=== PATIENT | male | born 1945 | race African-American/Black ===

== ENCOUNTER 2016-07-13 14:32 | Inpatient (IN) | payer MEDICARE, BC ==
--- NOTE | 2016-07-13 15:05 | Emergency Department Record ---
History of Present Illness - General Chief Complaint: Abdominal Pain Stated Complaint: ABD PAIN,NAUSEA AND DIZZY Time Seen by Provider: 07/13/16 15:04 Source: Patient Mode of Arrival: Ambulatory Limitations: No limitations - History of Present Illness Initial Comments: The patient is here due to a 4 - 5 day hx of vague intermittent AP, nausea, and loose watery stools. The patient did have a fever this AM. He denies any vomiting, blood in the stool, recent Abx use or any hx of Cdiff. He does feel dizzy intermittently. The patient does have an ileostomy due to having his colon removed from Ulcerative Colitis. He also has had his prostate out and his gallbladder removed. MD Complaint: Abdominal pain Onset/Timin -: Days(s) Associated Symptoms: Chills, Nausea - Related Data Home Medications Medication Instructions Recorded Confirmed Last Taken Alprazolam [Xanax] 0.5 mg PO DAILY 07/13/16 07/13/16 07/12/16 Amlodipine Besylate [Norvasc] 5 mg PO DAILY 07/13/16 07/13/16 07/12/16 Aspirin [Aspir-Low] 81 mg PO DAILY 07/13/16 07/13/16 07/12/16 Baclofen 10 mg PO TID 07/13/16 07/13/16 07/12/16 Cholecalciferol (Vitamin D3) 1,000 unit PO DAILY 07/13/16 07/13/16 07/12/16 [Vitamin D3] Codeine Sulfate 30 mg PO TID 07/13/16 07/13/16 07/12/16 Dicyclomine HCl 10 mg PO BID 07/13/16 07/13/16 07/12/16 Divalproex Sodium [Depakote ER] 400 mg PO QHS 07/13/16 07/13/16 07/11/16 Levothyroxine Sodium [Synthroid] 75 mcg PO DAILY 07/13/16 07/13/16 07/12/16 Loperamide HCl [Immodium] 2 mg PO DAILY 07/13/16 07/13/16 07/12/16 Metoprolol Tartrate [Lopressor] 25 mg PO DAILY 07/13/16 07/13/16 07/12/16 Omeprazole [Prilosec] 20 mg PO DAILY 07/13/16 07/13/16 07/12/16 Quetiapine Fumarate [Seroquel Xr] 400 mg PO QHS 07/13/16 07/13/16 07/11/16 Quetiapine Fumarate [Seroquel] 400 mg PO QHS 07/13/16 07/13/16 07/12/16 Riboflavin [Vitamin B-2] 100 mg PO DAILY 07/13/16 07/13/16 07/12/16 Sodium Fluoride [Fluoride] 0.5 mg PO DAILY 07/13/16 07/13/16 07/12/16 Allergies Allergy/AdvReac Type Severity Reaction Status Date / Time olanzapine Allergy HYPERSENSIT Verified 07/13/16 14:59 IVITY Travel Screening - Travel/Exposure Within Last 30 Days Have you traveled within the last 30 days?: No - Travel/Exposure Within Last Year Have you traveled outside the [place] in the last year?: No - Additonal Travel Details Have you been exposed to anyone with a communicable illness?: No Review of Systems Constitutional: Denies: Chills, Fever Eyes: Denies: Eye discharge ENT: Denies: Congestion Respiratory: Denies: Cough, Dyspnea Past Medical History - SOCIAL HISTORY Smoking Status: Never smoker Alcohol Use: None Drug Use: None - RESPIRATORY Hx Respiratory Disorders: No - CARDIOVASCULAR Hx Cardio Disorders: Yes Hx Hypertension: Yes Comment:: murmer - NEURO Hx Neuro Disorders: Yes Hx Headaches: Yes - GI Hx GI Disorders: Yes Hx Obstructive Bowel: Yes Comment:: colostomy r/t agent orange [place] - Hx Genitourinary Disorders: Yes Hx Bladder Problem: Yes (pt thinks removed) - ENDOCRINE Hx Endocrine Disorders: Yes Hx Diabetes: No Hx Thyroid Disease: Yes - MUSCULOSKELETAL Hx Musculoskeletal Disorders: Yes - PSYCH Hx Psych Problems: Yes Hx Anxiety: Yes Hx Depression: Yes - HEMATOLOGY/ONCOLOGY Hx Hematology/Oncology Disorders: No Hx Blood Transfusions: Yes Hx Blood Transfusion Reaction: No Family Medical History Any Significant Family History?: No Physical Exam - General General Appearance: Alert, Oriented x3, Cooperative, No acute distress - Head Head exam: Atraumatic, Normocephalic, Normal inspection - Eye Eye exam: Normal appearance, PERRL - Neck Neck exam: Normal inspection, Full ROM. negative: Tenderness - Respiratory Respiratory exam: Normal lung sounds bilaterally. negative: Respiratory distress - Cardiovascular Cardiovascular Exam: Regular rate, Normal rhythm, Normal heart sounds - GI/Abdominal GI/Abdominal exam: Soft, Normal bowel sounds, Tenderness (There is mild R sided abdominal tenderness.). negative: Diminished bowel sounds, Distended, Guarding - Extremities Extremities exam: Normal inspection, Full ROM, Normal capillary refill. negative: Tenderness Course Vital Signs 07/13/16 14:47 Temperature 97.7 F Pulse Rate 83 Respiratory 18 Rate Blood Pressure 136/96 Pulse Ox 99 - Reevaluation(s) Reevaluation #1: The patient is doing well at this time. He denies any new issues but is still having significant diarrhea. There is no nausea or vomiting. 07/13/16 17:36 Reevaluation #2: The patient is doing OK at this time. He is still having some abdominal pain but no nausea or vomiting. I did discuss the CT and lab results with the patient and the need for admission. 07/13/16 18:00 Reevaluation #3: I did discuss the case with Dr. Lewis and he agrees with admitting the patient here at [facility] and will be available for consultation. I then did discuss the case with Amanda BOWSER) who accepts the patient for admission for Dr. Gonzales. 07/13/16 18:15 Medical Decision Making - Data Complexity MDM Data: Labs Ordered and/or Reviewed, X-Ray Ordered and/or Reviewed (Abd CT: partial SBO with mildly dilated small bowel. There is a zone of transition near the surgical anastomosis site.) - Lab Data Result diagrams: 07/13/16 15:50 07/13/16 15:50 Disposition Disposition: Admit Clinical Impression: Small bowel obstruction due to adhesions Disposition: Still a Patient at [facility] Decision to Admit: Admit from ER Decision to Admit Date: 07/13/16 Decision to Admit Time: 18:17 Accepting Physician: Janet Time Discussed w/Accepting Physician: 18:17 Condition: (2) Stable Instructions: Abdominal Pain (ED) Forms: Patient Portal Access Time of Disposition: 18:17
[2016-07-13] MEDS ORDERED: 0.9 % SODIUM CHLORIDE 1,000 ML BAG IV ONE ×2 (15:11→16:28)
[2016-07-13] MEDS ORDERED: ONDANSETRON HCL IV 4 MG/2 ML VIAL IV ONE (15:11)
[2016-07-13 16:00] LABS: BASO % 0.1 % (0-6); EOS % 0.7 % (0-6); GRAN % 59.2 % (47-80); HEMATOCRIT 42.2 % (42.0-52.0); HEMOGLOBIN 14.2 gm/dl (14.0-18.0); LYMPH % 26.2 % (16-45); MEAN CELL VOLUME 88.1 fl (81-97); MEAN CORPUSCULAR HEMOGLOBIN 29.6 pg (27-33); MEAN CORPUSCULAR HGB CONC 33.6 g/dl (32-36); MEAN PLATELET VOLUME 11.4 fl (7.4-10.4); MONO % 13.8 % (0-9); PLATELET COUNT 219 K/uL (130-400); RED BLOOD COUNT 4.79 M/uL (4.40-5.70); RED CELL DISTRIBUTION WIDTH 13.4 % (11.5-14.5); WHITE BLOOD COUNT W/O DIFF 8.5 K/uL (4.2-12.2)
[2016-07-13 16:10] LABS: ALBUMIN 4.9 gm/dL (3.5-5.0); ANION GAP 16.2 (7-16); BILIRUBIN,TOTAL 0.6 mg/dL (0.2-1.3); CARBON DIOXIDE 18.8 mmol/L (22-30); CREATININE 2.4 mg/dL (0.66-1.25); TOTAL PROTEIN 9.3 gm/dL (6.3-8.2)
[2016-07-13 17:00] LABS: URINE APPEARANCE CLEAR; URINE BILIRUBIN MODERATE (NEGATIVE); URINE BLOOD NEGATIVE (NEGATIVE); URINE COLOR YELLOW; URINE GLUCOSE (UA) NEGATIVE (NEGATIVE); URINE KETONE TRACE (NEGATIVE); URINE LEUKOCYTE ESTERASE NEGATIVE (NEGATIVE); URINE NITRITE NEGATIVE (NEGATIVE); URINE UROBILINOGEN 0.2 E.U./dL (0.20 - 1.00)
[2016-07-13] MEDS ORDERED: ONDANSETRON HCL IV 4 MG/2 ML VIAL IVP ONE (17:58)
[2016-07-13] MEDS ORDERED: HYDROMORPHONE HCL 1 MG/ML CPJ IVP ONE (17:58)
[2016-07-13] MEDS ORDERED: ONDANSETRON HCL IV 4 MG/2 ML VIAL IVP PRN (19:26)
[2016-07-13] MEDS ORDERED: PANTOPRAZOLE SODIUM IV 40 MG VIAL IVP SCH (19:26)
[2016-07-13] MEDS ORDERED: QUETIAPINE FUMARATE 400 MG PO SCH (22:00)
[2016-07-13] MEDS ORDERED: DIVALPROEX SODIUM 500 MG TABLET ER PO SCH (22:00)
[2016-07-13] MEDS ORDERED: QUETIAPINE FUMARATE 25 MG TABLET PO SCH (22:00)
[2016-07-13] MEDS: HYDROMORPHONE HCL 1 MG/ML CPJ IVP PRN (22:09)
[2016-07-13] MEDS: DICYCLOMINE HCL 10 MG CAPSULE PO SCH (22:12)
[2016-07-13] MEDS: BACLOFEN 10 MG TABLET PO SCH (23:55)
[2016-07-13] MEDS: QUETIAPINE 400 MG PO SCH (23:56)
[2016-07-13] MEDS: DIVALPROEX 500 MG PO SCH (23:56)
[2016-07-14] MEDS: HYDROMORPHONE HCL 1 MG/ML CPJ IVP PRN ×2 (05:19→10:49)
[2016-07-14 06:20] LABS: BASO % 0.2 % (0-6); EOS % 0.5 % (0-6); GRAN % 65.7 % (47-80); HEMATOCRIT 37.1 % (42.0-52.0); HEMOGLOBIN 12.3 gm/dl (14.0-18.0); LYMPH % 19.5 % (16-45); MEAN CELL VOLUME 90.3 fl (81-97); MEAN CORPUSCULAR HEMOGLOBIN 29.9 pg (27-33); MEAN CORPUSCULAR HGB CONC 33.2 g/dl (32-36); MEAN PLATELET VOLUME 11.4 fl (7.4-10.4); MONO % 14.1 % (0-9); PLATELET COUNT 190 K/uL (130-400); RED BLOOD COUNT 4.11 M/uL (4.40-5.70); RED CELL DISTRIBUTION WIDTH 13.4 % (11.5-14.5); WHITE BLOOD COUNT W/O DIFF 6.1 K/uL (4.2-12.2)
[2016-07-14 06:34] LABS: ANION GAP 10.8 (7-16); CARBON DIOXIDE 18.2 mmol/L (22-30); CREATININE 2.2 mg/dL (0.66-1.25)
[2016-07-14] MEDS: METOPROLOL TART 25 MG TABLET PO SCH (10:43)
[2016-07-14] MEDS: LEVOTHYROXINE SODIUM 75 MCG TABLET PO SCH (10:43)
[2016-07-14] MEDS: AMLODIPINE BESYLATE 5MG TAB PO SCH (10:43)
[2016-07-14] MEDS: BACLOFEN 10 MG TABLET PO SCH ×3 (10:43→21:09)
[2016-07-14] MEDS: DICYCLOMINE HCL 10 MG CAPSULE PO SCH ×2 (10:44→21:08)
[2016-07-14] MEDS: ALPRAZOLAM 0.25 MG TABLET PO SCH (10:44)
[2016-07-14] MEDS: 0.9 % SODIUM CHLORIDE 1000ML 1,000 ML IV PRN ×2 (10:52→19:42)
--- NOTE | 2016-07-14 17:36 | History & Physical ---
History of Present Illness - Date of Service Date of Service for History & Physical: 07/14/16 - History of Present Illness Admitting Diagnosis: 1. Small bowel obstruction with dehydration and renal insuffiency. History of Present Illness: 65 yo male admitted SBO. History obtained from chart as patient is unable to stay awake during exam. PMHx of UC s/p colectomy w/ ileostomy placement, h/o SBO, anxiety, depression, HTN, hypothyroidism, acid reflux, former smoker, COPD , h/o etoh abuse, and Vit D defeciency. Pt presented to our ED for vague AP, nausea, and loose stool. symptoms began 4- 5 days prior to arrival. aggravated by nothing. Alleviated w/ bowel rest and pain medications. Associated symptoms include fever. upon presentation to the ED, temp 97.7, HR 83, RR 18, BP 136/96, pulse ox 99. WBC 8.5, hgb 14.2, hct 42.2, plt 219, BUN 42, cr 2.4, glucose 111, lipase & hepatic profile are negative. UA: trace ketones, moderate bili, stool negative for WBCs and Cdiff. CTA/P: colectomy, R ileostomy, small bowel obstruction w/ noted adhesion. Patient made NPO, started on IV pain control & fluids. General surgery consulted. Patient admitted for further medical management. 07/14/16: This am, patient is difficult to arouse following 1 gm of IV Dilaudid and 0.5 mg of PO Xanax. Patient arouses to name, however unable to stay awake. No family in the room and difficult to obtain history. Patient denies pain, however abdomen TTP on exam. Ileostomy bag w/ liquid stool. Per chart, no recent infections or antibiotic use. Other surgeries include prostatectomy and cholecystectomy. PCP: unknown Travel Screening - Travel/Exposure Within Last 30 Days Have you traveled within the last 30 days?: No - Travel/Exposure Within Last Year Have you traveled outside the [place] in the last year?: No - Additonal Travel Details Have you been exposed to anyone with a communicable illness?: No - Travel Symptoms Symptom Screening: Fever (Subjective), Joint & Muscle Aches, Weakness, Fatigue, Diarrhea, Stomach Pain, Lack of Appetite, Chills Review of Systems Constitutional: Denies: Chills, Fever Eyes: Denies: Eye discharge ENT: Denies: Congestion Respiratory: Denies: Cough, Dyspnea Past Medical History - SOCIAL HISTORY Smoking Status: Never smoker - RESPIRATORY Hx Respiratory Disorders: No - CARDIOVASCULAR Hx Cardio Disorders: Yes Hx Hypertension: Yes Comment:: murmur - NEURO Hx Neuro Disorders: Yes Hx Headaches: Yes - GI Hx GI Disorders: Yes Hx Nausea/Vomiting: Yes (intermittent nausea since Saturday) Hx Obstructive Bowel: Yes Comment:: colostomy r/t agent orange [place], ileostomy due to ulcertative colitis - Hx Genitourinary Disorders: Yes Hx Bladder Problem: Yes (pt thinks removed) - ENDOCRINE Hx Endocrine Disorders: Yes Hx Diabetes: No Hx Thyroid Disease: Yes - MUSCULOSKELETAL Hx Musculoskeletal Disorders: Yes Hx Back Injury: Yes (pulled muscles/ligaments in back last week) - PSYCH Hx Psych Problems: Yes Hx Anxiety: Yes Hx Depression: Yes - HEMATOLOGY/ONCOLOGY Hx Hematology/Oncology Disorders: No Hx Blood Transfusions: Yes Hx Blood Transfusion Reaction: No Family Medical History Any Significant Family History?: No Hx Diabetes: Mother Hx Heart Disease: Mother Hx Liver Disease: Father H&P Meds/Allergies - Allergies Allergies: Allergies Allergy/AdvReac Type Severity Reaction Status Date / Time olanzapine Allergy HYPERSENSIT Verified 07/13/16 14:59 IVITY - Home Medications Home Medications Medication Instructions Recorded Confirmed Last Taken Alprazolam [Xanax] 0.5 mg PO DAILY 07/13/16 07/13/16 07/12/16 Amlodipine Besylate [Norvasc] 5 mg PO DAILY 07/13/16 07/13/16 07/12/16 Aspirin [Aspir-Low] 81 mg PO DAILY 07/13/16 07/13/16 07/12/16 Baclofen 10 mg PO TID 07/13/16 07/13/16 07/12/16 Cholecalciferol (Vitamin D3) 1,000 unit PO DAILY 07/13/16 07/13/16 07/12/16 [Vitamin D3] Codeine Sulfate 30 mg PO TID 07/13/16 07/13/16 07/12/16 Dicyclomine HCl 10 mg PO BID 07/13/16 07/13/16 07/12/16 Divalproex Sodium [Depakote ER] 1,000 mg PO QHS 07/13/16 07/13/16 07/11/16 Latanoprost 0.005% Opth Molly 1 drop OP QHS 07/13/16 07/13/16 07/12/16 22:00 [Xalatan] 1 drop each eye Levothyroxine Sodium [Synthroid] 75 mcg PO DAILY 07/13/16 07/13/16 07/12/16 Loperamide HCl [Immodium] 2 mg PO DAILY 07/13/16 07/13/16 07/12/16 Metoprolol Tartrate [Lopressor] 25 mg PO DAILY 07/13/16 07/13/16 07/12/16 Omeprazole [Prilosec] 20 mg PO DAILY 07/13/16 07/13/16 07/12/16 Quetiapine Fumarate [Seroquel] 400 mg PO QHS 07/13/16 07/13/16 07/12/16 Riboflavin [Vitamin B-2] 100 mg PO DAILY 07/13/16 07/13/16 07/12/16 Sodium Fluoride [Fluoride] 0.5 mg PO DAILY 07/13/16 07/13/16 07/12/16 - Active Medications Active Medications: Current Medications Alprazolam (Xanax) 0.5 mg PO DAILY [facility] Last Admin: 07/14/16 10:44 Dose: 0.5 mg Amlodipine Besylate (Norvasc) 5 mg PO DAILY [facility] Last Admin: 07/14/16 10:43 Dose: 5 mg Baclofen (Lioresal) 10 mg PO TID [facility] Last Admin: 07/14/16 15:58 Dose: Not Given Dicyclomine HCl (Bentyl) 10 mg PO BID [facility] Last Admin: 07/14/16 10:44 Dose: 10 mg Hydromorphone HCl (Dilaudid) 0.5 mg IVP Q4H PRN PRN Reason: Pain - Moderate (5-7) Sodium Chloride () 1,000 mls @ 125 mls/hr IV .Q8H PRN PRN Reason: LARGE VOLUME IV Last Admin: 07/14/16 10:52 Dose: 125 mls/hr Levothyroxine Sodium (Synthroid) 75 mcg PO DAILYTHY [facility] Last Admin: 07/14/16 10:43 Dose: 75 mcg Metoprolol Tartrate (Lopressor) 25 mg PO DAILY [facility] Last Admin: 07/14/16 10:43 Dose: 25 mg Ondansetron HCl (Zofran) 4 mg IVP Q4H PRN PRN Reason: NAUSEA Last Admin: 07/13/16 22:01 Dose: 4 mg Pantoprazole Sodium (Protonix Iv) 40 mg IVP Q24H [facility] Patient Own Med: (Quetiapine 400 Mg) 1 each PO QHS [facility] Last Admin: 07/13/16 23:56 Dose: 1 each Patient Own Med: (Divalproex Er 500 Mg) 2 each PO QHS [facility] Last Admin: 07/13/16 23:56 Dose: 2 each Physical Exam - Vital Signs Vital Signs: Vital Signs - Last 24 Hrs Temp Pulse Resp BP BP Pulse Ox 07/14/16 16:31 97.6 F 99/65 07/14/16 13:00 97.6 F 67 14 99/65 95 07/14/16 09:00 97.9 F 68 14 97/65 96 07/14/16 08:37 16 07/14/16 05:00 97.9 F 74 18 105/55 97 07/14/16 00:53 97.9 F 64 18 106/56 96 07/13/16 21:26 98.3 F 68 18 118/72 97 07/13/16 19:26 98.0 F 59 L 18 122/67 96 - General General Appearance: Alert, Oriented x3, Cooperative, No acute distress Limitations: No limitations - Head Head exam: Atraumatic, Normocephalic, Normal inspection - Eye Eye exam: Normal appearance, PERRL - Neck Neck exam: Normal inspection, Full ROM. negative: Tenderness - Respiratory Respiratory exam: Normal lung sounds bilaterally. negative: Respiratory distress - Cardiovascular Cardiovascular Exam: Regular rate, Normal rhythm, Normal heart sounds - GI/Abdominal GI/Abdominal exam: Soft, Normal bowel sounds, Tenderness (There is mild R sided abdominal tenderness. no rebound or guarding on exam.). negative: Diminished bowel sounds, Distended, Guarding - Extremities Extremities exam: Normal inspection, Full ROM, Normal capillary refill. negative: Tenderness Results - Labs Result Diagrams: 07/14/16 05:40 07/14/16 05:40 Labs Last 24 Hours: Laboratory Results - last 24 hr 07/14/16 07/14/16 05:40 05:40 WBC 6.1 RBC 4.11 L Hgb 12.3 L Hct 37.1 L MCV 90.3 MCH 29.9 MCHC 33.2 RDW 13.4 Plt Count 190 MPV 11.4 H Gran % 65.7 Lymphocytes % 19.5 Monocytes % 14.1 H Eosinophils % 0.5 Basophils % 0.2 Sodium 139 Potassium 5.0 Chloride 110 H Carbon Dioxide 18.2 L Anion Gap 10.8 BUN 47 H Creatinine 2.2 H Estimated GFR 32 Random Glucose 111 H Calcium 8.3 L VTE H&P Assessment - Risk for VTE Risk for VTE: Yes Risk Level: Low Risk Assessment Date: 07/14/16 Risk Assessment Time: 12:00 VTE Orders Placed or Will Be Placed: Yes Plan - Inpatient Certification Inpatient Certification: Admit to inpatient care: Based on my medical assessment, after consideration of patient's risk factors (age, co-morbidities and patient presenting symptoms and acuity), I expect that this patient will remain in the hospital greater than or equal to two midnights and that the services needed warrant inpatient care because: Patient Risk Factors: [] Estimated length of stay: [] The patient may reasonably be expected to be discharged or transferred to a hospital within 96 hours after admission to [facility]. Services needed: [] Post hospital care (if known): [] I certify that my determination is in accordance with my understanding of Medicare requirements for reasonable and necessary inpatient services. - Detailed Diagnosis and Plan (1) Small bowel obstruction due to adhesions Current Visit: Yes Status: Acute Base Code: K56.5 - INTESTINAL ADHESIONS W OBST (POSTPROCEDURAL) (POSTINFECTION) Comment: 07/14/16: 71 yo male w/ h/o UC s/p colectomy w/ ileostomy placement. CTA/P: adhesion w/ SBO. WBC normal. Afebrile. Ileostomy bag w/ liquid stool. - continue to keep NPO - dilaudid 0.5 mg Q4 hours as needed for pain - Dr. restrepo following patient - monitor stool output - AXR in the morning (2) DVT prophylaxis Current Visit: Yes Status: Acute Base Code: [id number] - Comment: 07/14/16: low risk noting decreased mobility. ambulation encouraged. (3) Full code status Current Visit: Yes Status: Acute Base Code: Z78.9 - OTHER SPECIFIED HEALTH STATUS Comment: 07/14/16 pt is full code (4) Acute kidney injury Current Visit: Yes Status: Acute Base Code: N17.9 - ACUTE KIDNEY FAILURE, UNSPECIFIED Comment: 07/14/16: dehydration vs. infection vs. other? GFR 32. Will attempt to obtain baseline kidney function. - continue gentle hydration - will continue to monitor kidney function closely- creatinine slightly improved this am
[2016-07-14] MEDS: PANTOPRAZOLE SODIUM IV 40 MG VIAL IVP SCH (21:01)
[2016-07-14] MEDS: DIVALPROEX 500 MG PO SCH (21:10)
[2016-07-14] MEDS: QUETIAPINE 400 MG PO SCH (21:10)
[2016-07-14] MEDS ORDERED: PATIENT OWN MED: PO SCH (22:00)
[2016-07-15] MEDS: 0.9 % SODIUM CHLORIDE 1000ML 1,000 ML IV PRN (04:39)
[2016-07-15] MEDS: LEVOTHYROXINE SODIUM 75 MCG TABLET PO SCH (06:27)
[2016-07-15 07:29] LABS: BASO % 0.2 % (0-6); EOS % 1.7 % (0-6); GRAN % 68.5 % (47-80); HEMOGLOBIN 12.8 gm/dl (14.0-18.0); LYMPH % 16.2 % (16-45); MEAN CELL VOLUME 90.5 fl (81-97); MEAN CORPUSCULAR HGB CONC 32.8 g/dl (32-36); MEAN PLATELET VOLUME 11.1 fl (7.4-10.4); MONO % 13.4 % (0-9); PLATELET COUNT 164 K/uL (130-400); RED BLOOD COUNT 4.31 M/uL (4.40-5.70); RED CELL DISTRIBUTION WIDTH 13.2 % (11.5-14.5); WHITE BLOOD COUNT W/O DIFF 5.4 K/uL (4.2-12.2)
[2016-07-15 07:31] LABS: MEAN CORPUSCULAR HEMOGLOBIN 29.6 pg (27-33)
[2016-07-15 07:37] LABS: ANION GAP 13.8 (7-16); CARBON DIOXIDE 18.2 mmol/L (22-30); CREATININE 1.9 mg/dL (0.66-1.25)
[2016-07-15] MEDS: ALPRAZOLAM 0.25 MG TABLET PO SCH (09:43)
[2016-07-15] MEDS: DICYCLOMINE HCL 10 MG CAPSULE PO SCH ×2 (09:43→22:00)
[2016-07-15] MEDS: AMLODIPINE BESYLATE 5MG TAB PO SCH (09:43)
[2016-07-15] MEDS: METOPROLOL TART 25 MG TABLET PO SCH (09:43)
[2016-07-15] MEDS: BACLOFEN 10 MG TABLET PO SCH ×3 (09:44→22:01)
--- NOTE | 2016-07-15 10:43 | Physician Progress Note ---
Subjective - Date Date of Physician Progress Note: 07/15/16 - Subjective Subjective Comment: lying in bed comfortably w/ at bedside patient much more awake this am states he's feeling better tolerated jello this am stool present in ileostomy bag denies n/v, fever, chills. abdominal pain improving. Objective - Vital Signs Vital Signs: Vital Signs - Last 24 Hrs Temp Pulse Resp BP BP BP Pulse Ox 07/15/16 09:00 98.8 F 78 16 137/74 95 07/15/16 08:15 16 07/15/16 05:00 97.8 F 83 18 131/67 95 07/14/16 23:40 97.5 F L 59 L 18 101/60 95 07/14/16 21:00 97.5 F L 57 L 16 120/69 98 07/14/16 17:00 98.0 F 60 16 114/70 98 07/14/16 16:31 97.6 F 99/65 07/14/16 13:00 97.6 F 67 14 99/65 95 - General General Appearance: Alert, Oriented x3, Cooperative, No acute distress Limitations: No limitations - Head Head exam: Atraumatic, Normocephalic, Normal inspection - Eye Eye exam: Normal appearance, PERRL - Neck Neck exam: Normal inspection, Full ROM. negative: Tenderness - Respiratory Respiratory exam: Normal lung sounds bilaterally. negative: Respiratory distress - Cardiovascular Cardiovascular Exam: Regular rate, Normal rhythm, Normal heart sounds - GI/Abdominal GI/Abdominal exam: Soft, Normal bowel sounds, Tenderness (There is mild R sided abdominal tenderness. no rebound or guarding on exam.). negative: Diminished bowel sounds, Distended, Guarding - Extremities Extremities exam: Normal inspection, Full ROM, Normal capillary refill. negative: Tenderness Assessment and Plan - Inpatient Certification Inpatient Certification: expected stay: 3-4 nights risk factors: sbo, close monitoring, kidney injury, general surgery consult d/c plan: home, self care treatment: close monitoring, gentle hydration, NPO to clear liquid diet, general surgery consult 07/15/16 10:42 - Assessment and Plan (1) Small bowel obstruction due to adhesions Current Visit: Yes Status: Acute Base Code: K56.5 - INTESTINAL ADHESIONS W OBST (POSTPROCEDURAL) (POSTINFECTION) Comment: 07/15/16: 71 yo male w/ h/o UC s/p colectomy w/ ileostomy placement. CTA/P: adhesion w/ SBO. WBC normal. Afebrile. Ileostomy bag w/ liquid stool again this am. - advance to [facility], consider full liquid diet for super (Diet approved by Dr. Lewis) - dilaudid 0.5 mg Q4 hours as needed for pain - Dr. lewis following patient - monitor stool output - AXR: unchanged (2) DVT prophylaxis Current Visit: Yes Status: Acute Base Code: [id number] - Comment: 07/15/16: low risk noting decreased mobility. ambulation encouraged. (3) Full code status Current Visit: Yes Status: Acute Base Code: Z78.9 - OTHER SPECIFIED HEALTH STATUS Comment: 07/15/16 pt is full code (4) Acute kidney injury Current Visit: Yes Status: Acute Base Code: N17.9 - ACUTE KIDNEY FAILURE, UNSPECIFIED Comment: 07/15/16: dehydration vs. infection vs. other? GFR 38. Will attempt to obtain baseline kidney function. - continue gentle hydration - will continue to monitor kidney function closely- creatinine slightly improved again this am Results - Labs Result Diagrams: 07/15/16 07:18 07/15/16 07:18 Labs Last 24 Hours: Laboratory Results - last 24 hr 07/15/16 07/15/16 07:18 07:18 WBC 5.4 RBC 4.31 L Hgb 12.8 L Hct 39.0 L MCV 90.5 MCH 29.6 MCHC 32.8 RDW 13.2 Plt Count 164 MPV 11.1 H Gran % 68.5 Lymphocytes % 16.2 Monocytes % 13.4 H Eosinophils % 1.7 Basophils % 0.2 Sodium 143 Potassium 4.2 Chloride 111 H Carbon Dioxide 18.2 L Anion Gap 13.8 BUN 42 H Creatinine 1.9 H Estimated GFR 38 Random Glucose 87 Calcium 8.8 DVT/PE Assessment - Risk for VTE Risk for VTE: No Risk Level: Low Risk Assessment Date: 07/14/16 Risk Assessment Time: 12:00 VTE Orders Placed or Will Be Placed: Yes - Active Medicaitons Current Medications: Current Medications Alprazolam (Xanax) 0.5 mg PO DAILY [facility] Last Admin: 07/15/16 09:43 Dose: 0.5 mg Amlodipine Besylate (Norvasc) 5 mg PO DAILY [facility] Last Admin: 07/15/16 09:43 Dose: 5 mg Baclofen (Lioresal) 10 mg PO TID [facility] Last Admin: 07/15/16 09:44 Dose: 10 mg Dicyclomine HCl (Bentyl) 10 mg PO BID [facility] Last Admin: 07/15/16 09:43 Dose: 10 mg Hydromorphone HCl (Dilaudid) 0.5 mg IVP Q4H PRN PRN Reason: Pain - Moderate (5-7) Sodium Chloride () 1,000 mls @ 125 mls/hr IV .Q8H PRN PRN Reason: LARGE VOLUME IV Last Admin: 07/15/16 04:39 Dose: 125 mls/hr Levothyroxine Sodium (Synthroid) 75 mcg PO [facility] Last Admin: 07/15/16 06:27 Dose: 75 mcg Metoprolol Tartrate (Lopressor) 25 mg PO DAILY [facility] Last Admin: 07/15/16 09:43 Dose: 25 mg Ondansetron HCl (Zofran) 4 mg IVP Q4H PRN PRN Reason: NAUSEA Last Admin: 07/13/16 22:01 Dose: 4 mg Pantoprazole Sodium (Protonix Iv) 40 mg IVP Q24H [facility] Last Admin: 07/14/16 21:01 Dose: 40 mg Patient Own Med: (Quetiapine 400 Mg) 1 each PO QHS [facility] Last Admin: 07/14/16 21:10 Dose: 1 each Patient Own Med: (Divalproex Er 500 Mg) 2 each PO QHS [facility] Last Admin: 07/14/16 21:10 Dose: 2 each AMI Plan - Labs Result Diagrams: 07/15/16 07:18 07/15/16 07:18
[2016-07-15] MEDS: HYDROMORPHONE HCL 1 MG/ML CPJ IVP PRN (21:01)
[2016-07-15] MEDS: QUETIAPINE 400 MG PO SCH (22:02)
[2016-07-15] MEDS: DIVALPROEX 500 MG PO SCH (22:02)
[2016-07-15] MEDS: PANTOPRAZOLE SODIUM IV 40 MG VIAL IVP SCH (22:03)
[2016-07-16] MEDS: 0.9 % SODIUM CHLORIDE 1000ML 1,000 ML IV PRN ×2 (00:08→20:59)
[2016-07-16 06:45] LABS: MEAN CELL VOLUME 89.1 fl (81-97); MEAN CORPUSCULAR HEMOGLOBIN 29.7 pg (27-33); MEAN CORPUSCULAR HGB CONC 33.3 g/dl (32-36); MEAN PLATELET VOLUME 11.2 fl (7.4-10.4); PLATELET COUNT 156 K/uL (130-400); RED BLOOD COUNT 4.04 M/uL (4.40-5.70); WHITE BLOOD COUNT W/O DIFF 6.3 K/uL (4.2-12.2)
[2016-07-16 07:11] LABS: ANION GAP 11.1 (7-16); CARBON DIOXIDE 20.9 mmol/L (22-30); CREATININE 1.7 mg/dL (0.66-1.25)
[2016-07-16 07:28] LABS: PLATELET ESTIMATE NORMAL (NORMAL)
[2016-07-16] MEDS ORDERED: [UNRECOGNIZED DRUG - OTHER] PO SCH (08:00)
[2016-07-16] MEDS ORDERED: PROBIOTIC PO SCH (08:00)
--- NOTE | 2016-07-16 08:27 | CT SCAN REPORT ---
EXAM: CT OF THE ABDOMEN AND PELVIS WITHOUT CONTRAST HISTORY: RIGHT SIDED ABDOMINAL PAIN. HISTORY OF ILEOSTOMY. TECHNIQUE: Helical CT examination of the abdomen and pelvis was performed without oral or intravenous contrast administration. Lack of oral and IV contrast utilization limits evaluation of the bowel and solid viscera respectively. Comparison: None. FINDINGS: The lung bases are clear and there is no pleural or pericardial effusion. The heart is not enlarged. There is a possible small sliding type hiatal hernia. There is a small area of hypodensity within the medial segment of the left liver lobe anteriorly adjacent to the fissure of the falciform ligament consistent with a normal variant area of differential perfusion or fatty infiltration. No suspicious focal hepatic lesion identified. The spleen, pancreas, and adrenal glands are normal in appearance. The kidneys are normal in size and position. No nephrolithiasis nor renal mass is seen. The collecting systems are not dilated. The gallbladder is either contracted or absent. No biliary ductal dilatation is seen. There is minor atherosclerosis without aneurysmal dilatation of the abdominal aorta nor iliac arteries. 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 A penile prosthesis is in place. The colon is surgically absent. There is a right sided ileostomy. There is gas and fluid distention of the majority of the small bowel with multiple loops mildly dilated. There does appear to be zone of transition just proximal to the ileostomy where there is an anastomosis. No gross small bowel wall thickening is seen nor is there pneumatosis intestinalis. There is a small ring like soft tissue density within the subcutaneous fat in the anterolateral mid right abdominal wall measuring 11 mm. This likely relates to an area of fat necrosis. No lytic or blastic bone lesion is seen. There are mild degenerative changes of the visualized spine. IMPRESSION: 1. STATUS POST COLECTOMY WITH RIGHT SIDED ILEOSTOMY. THERE IS SUGGESTION OF SMALL BOWEL OBSTRUCTION WITH ZONE OF TRANSITION JUST DEEP TO THE ILEOSTOMY WHERE THERE IS AN ANASTOMOTIC SITE. 2. STATUS POST PROSTATECTOMY. PENILE IMPLANT IN PLACE. JOB NUMBER: [id number]
--- NOTE | 2016-07-16 08:31 | RADIOLOGY REPORT ---
EXAM: ABDOMEN, TWO VIEWS HISTORY: SMALL BOWEL OBSTRUCTION. TECHNIQUE: Supine and upright views of the abdomen were obtained. Comparison: No prior abdomen series, but comparison is made with the CT scan performed two days ago on 07/13/16. FINDINGS: Extensive postoperative changes in the pelvis again seen. Ostomy right lower quadrant. Dilated small bowel with the dilated loops measuring up to about 4.8 cm in diameter. Overall this has changed relatively little from the appearance on the scanogram from the prior CT scan. Some air fluid levels on the upright view today with no free air evident. IMPRESSION: PERSISTENT SMALL BOWEL DISTENTION WHICH HAS CHANGED RELATIVELY LITTLE FROM THE PRIOR CT TWO DAYS AGO. FINDINGS CONSISTENT WITH PERSISTENT SMALL BOWEL OBSTRUCTION. NO FREE AIR EVIDENT. JOB NUMBER: [id number] [facility]
[2016-07-16] MEDS: ALPRAZOLAM 0.25 MG TABLET PO SCH (10:17)
[2016-07-16] MEDS: LEVOTHYROXINE SODIUM 75 MCG TABLET PO SCH (10:17)
[2016-07-16] MEDS: METOPROLOL TART 25 MG TABLET PO SCH (10:17)
[2016-07-16] MEDS: BACLOFEN 10 MG TABLET PO SCH ×3 (10:17→21:36)
[2016-07-16] MEDS: DICYCLOMINE HCL 10 MG CAPSULE PO SCH ×2 (10:17→21:36)
[2016-07-16] MEDS: AMLODIPINE BESYLATE 5MG TAB PO SCH (10:17)
--- NOTE | 2016-07-16 11:29 | Physician Progress Note ---
Subjective - Date Date of Physician Progress Note: 07/16/16 - Subjective Subjective Comment: lying in bed comfortably w/ at bedside patient experienced n/v following CLD yesterday evening since this time, he's experiencing worsening abdominal pain stool noted in ileostomy bag. patient changed bag 4 times w/in 24 hour period afebrile. no fever, chills, diaphoresis, vomiting, dysuria Objective - Vital Signs Vital Signs: Vital Signs - Last 24 Hrs Temp Pulse Resp BP BP BP Pulse Ox 07/16/16 09:31 98.8 F 137/74 07/16/16 08:20 16 07/16/16 08:05 98.1 F 77 16 132/76 132/76 97 07/16/16 06:00 98.8 F 73 18 126/72 98 07/16/16 02:37 98.7 F 07/15/16 23:52 99.4 F 76 18 133/69 95 07/15/16 23:07 99.0 F 07/15/16 22:30 99.7 F H 07/15/16 20:00 100.3 F H 73 18 134/76 98 07/15/16 17:00 99.4 F 75 16 123/77 97 07/15/16 13:00 99.6 F 71 16 135/75 96 - General General Appearance: Alert, Oriented x3, Cooperative, No acute distress Limitations: No limitations - Head Head exam: Atraumatic, Normocephalic, Normal inspection - Eye Eye exam: Normal appearance, PERRL - Neck Neck exam: Normal inspection, Full ROM. negative: Tenderness - Respiratory Respiratory exam: Normal lung sounds bilaterally. negative: Respiratory distress - Cardiovascular Cardiovascular Exam: Regular rate, Normal rhythm, Normal heart sounds - GI/Abdominal GI/Abdominal exam: Soft, Normal bowel sounds, Tenderness (There is mild R sided abdominal tenderness. no rebound or guarding on exam.). negative: Diminished bowel sounds, Distended, Guarding - Extremities Extremities exam: Normal inspection, Full ROM, Normal capillary refill. negative: Tenderness - Skin Skin exam: Other (multiple abdominal scars) Assessment and Plan - Inpatient Certification Inpatient Certification: risk factors: SBO, multiple abdominal surgeries, n/v, dehydration, acute kidney injury treatment: IVFs, general surgery evaluation, close monitoring, IV pain control est length of stay: 4-5 nights discharge plan: home, self care 07/16/16 11:27 - Assessment and Plan (1) Small bowel obstruction due to adhesions Current Visit: Yes Status: Acute Base Code: K56.5 - INTESTINAL ADHESIONS W OBST (POSTPROCEDURAL) (POSTINFECTION) Comment: 07/16/16: 71 yo male w/ h/o UC s/p colectomy w/ ileostomy placement. CTA/P: adhesion w/ SBO. WBC normal. Afebrile. Ileostomy bag w/ liquid stool. - diet backed down to NPO noting N/V yesterday evening. - dilaudid 0.5 mg Q4 hours as needed for pain - Dr. restrepo will evaluate patient again later today. - monitor stool output - AXR: unchanged on 07/15/16. (2) DVT prophylaxis Current Visit: Yes Status: Acute Base Code: [id number] - Comment: 07/16/16: low risk noting decreased mobility. ambulation encouraged. (3) Full code status Current Visit: Yes Status: Acute Base Code: Z78.9 - OTHER SPECIFIED HEALTH STATUS Comment: 07/16/16 pt is full code (4) Acute kidney injury Current Visit: Yes Status: Acute Base Code: N17.9 - ACUTE KIDNEY FAILURE, UNSPECIFIED Comment: 07/16/16: dehydration vs. infection vs. other? GFR 42. BUN/Cr continue to improve. - continue gentle hydration - will continue to monitor kidney function closely Results - Labs Result Diagrams: 07/16/16 06:30 07/16/16 06:30 Labs Last 24 Hours: Laboratory Results - last 24 hr 07/16/16 07/16/16 06:30 06:30 WBC 6.3 RBC 4.04 L Hgb 12.0 L Hct 36.0 L MCV 89.1 MCH 29.7 MCHC 33.3 RDW 13.0 Plt Count 156 MPV 11.2 H Neutrophils % 47.0 Band Neutrophils % 16.0 H Lymphocytes % 27.0 Monocytes % 10.0 H Eosinophils % Not Reportable Basophils % Not Reportable Platelet Estimate Normal RBC Morphology Normal Sodium 140 Potassium 4.3 Chloride 108 H Carbon Dioxide 20.9 L Anion Gap 11.1 BUN 31 H Creatinine 1.7 H Estimated GFR 43 Random Glucose 101 Calcium 8.8 DVT/PE Assessment - Risk for VTE Risk for VTE: No Risk Level: Low Risk Assessment Date: 07/14/16 Risk Assessment Time: 12:00 VTE Orders Placed or Will Be Placed: Yes - Active Medicaitons Current Medications: Current Medications Alprazolam (Xanax) 0.5 mg PO DAILY [facility] Last Admin: 07/16/16 10:17 Dose: 0.5 mg Amlodipine Besylate (Norvasc) 5 mg PO DAILY [facility] Last Admin: 07/16/16 10:17 Dose: 5 mg Baclofen (Lioresal) 10 mg PO TID [facility] Last Admin: 07/16/16 10:17 Dose: 10 mg Dicyclomine HCl (Bentyl) 10 mg PO BID [facility] Last Admin: 07/16/16 10:17 Dose: 10 mg Hydromorphone HCl (Dilaudid) 0.5 mg IVP Q4H PRN PRN Reason: Pain - Moderate (5-7) Last Admin: 07/15/16 21:01 Dose: 0.5 mg Sodium Chloride () 1,000 mls @ 125 mls/hr IV .Q8H PRN PRN Reason: LARGE VOLUME IV Last Admin: 07/16/16 00:08 Dose: 125 mls/hr Levothyroxine Sodium (Synthroid) 75 mcg PO DAILYTHY [facility] Last Admin: 07/16/16 10:17 Dose: 75 mcg Metoprolol Tartrate (Lopressor) 25 mg PO DAILY [facility] Last Admin: 07/16/16 10:17 Dose: 25 mg Ondansetron HCl (Zofran) 4 mg IVP Q4H PRN PRN Reason: NAUSEA Last Admin: 07/13/16 22:01 Dose: 4 mg Pantoprazole Sodium (Protonix Iv) 40 mg IVP Q24H [facility] Last Admin: 07/15/16 22:03 Dose: 40 mg Patient Own Med: (Quetiapine 400 Mg) 1 each PO QHS [facility] Last Admin: 07/15/16 22:02 Dose: 1 each Patient Own Med: (Divalproex Er 500 Mg) 2 each PO QHS [facility] Last Admin: 07/15/16 22:02 Dose: 2 each AMI Plan - Labs Result Diagrams: 07/16/16 06:30 07/16/16 06:30
--- NOTE | 2016-07-16 18:39 | Medical Records Consult ---
DATE OF CONSULTATION: 07/14/2016 REASON FOR CONSULTATION: Partial small bowel obstruction. The patient is a 71-year-old male who had a 4 to 5 day history of vague abdominal pain. This was diffuse in his abdomen and was accompanied by some nausea and occasional vomiting. He was noted to have a total abdominal colectomy for ulcerative colitis about 15 years ago, and does have a right lower quadrant ileostomy. This has been functioning, but he feels the output is a little watery than normal. He feels better this morning, has not had any vomiting since he has been here. He was seen in [facility] ER where a full workup was done. This did show a normal white count at 8.5. Repeat white count this morning was 6.1. He did have some renal failure with a creatinine of 2.4, it was 2.2 this morning. Stool studies drawn in the ER so far have been negative. 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 CURRENT MEDICATIONS INCLUDE: 1. Xanax. 2. Norvasc. 3. Baclofen. 4. Codeine. 5. Depakote. 6. Synthroid. 7. Imodium. 8. Lopressor. 9. Prilosec. 10. Seroquel. ALLERGIES: OLANZAPINE. PHYSICAL EXAMINATION: VITAL SIGNS: Stable. He is afebrile. HEART: Regular rate and rhythm. LUNGS: Are decreased. ABDOMEN: Soft. There are multiple laparotomy scars noted. He has a right lower quadrant ileostomy, which does have stool noted. EXTREMITIES: Show no trace of edema. I did review his CT scan; it shows findings consistent with a partial small bowel obstruction. IMPRESSION: Partial small bowel obstruction. We will continue IV hydration, hold his antidiarrheals, and follow him clinically. I would recheck an x-ray this morning. At this point, he needs no surgical intervention, but will be followed clinically. Of note, he is a very poor historian and a lot of the information was obtained from his prior records. Thank you for allowing me to participate in the care of your patient. KARAN
[2016-07-16] MEDS: PANTOPRAZOLE SODIUM IV 40 MG VIAL IVP SCH (21:37)
[2016-07-16] MEDS: QUETIAPINE 400 MG PO SCH (21:37)
[2016-07-16] MEDS: DIVALPROEX 500 MG PO SCH (21:37)
[2016-07-17] MEDS: LEVOTHYROXINE SODIUM 75 MCG TABLET PO SCH (06:33)
[2016-07-17 06:57] LABS: BASO % 0.4 % (0-6); EOS % 1.8 % (0-6); GRAN % 61.2 % (47-80); HEMATOCRIT 38.5 % (42.0-52.0); HEMOGLOBIN 12.7 gm/dl (14.0-18.0); LYMPH % 22.3 % (16-45); MEAN CELL VOLUME 89.1 fl (81-97); MEAN PLATELET VOLUME 11.3 fl (7.4-10.4); MONO % 14.3 % (0-9); PLATELET COUNT 168 K/uL (130-400); RED BLOOD COUNT 4.32 M/uL (4.40-5.70); RED CELL DISTRIBUTION WIDTH 13.3 % (11.5-14.5); WHITE BLOOD COUNT W/O DIFF 9.6 K/uL (4.2-12.2)
[2016-07-17 06:58] LABS: MEAN CORPUSCULAR HEMOGLOBIN 29.3 pg (27-33)
[2016-07-17 07:03] LABS: ANION GAP 15.3 (7-16); CARBON DIOXIDE 20.7 mmol/L (22-30); CREATININE 1.8 mg/dL (0.66-1.25)
--- NOTE | 2016-07-17 07:41 | RADIOLOGY REPORT ---
EXAM: ABDOMEN, TWO VIEWS HISTORY: FOLLOW-UP SMALL BOWEL OBSTRUCTION. TECHNIQUE: AP supine and upright views of the abdomen were obtained. Comparison: Abdomen two views dated 07/15/16 at 07:38. FINDINGS: Surgical clips are again noted along each pelvic sidewall and a penile prosthesis remains in place. Multiple gas and fluid distended, dilated small bowel loops are redemonstrated. The most dilated small bowel loop measures approximately 5 cm while on the prior day examination 4.8 cm. Multilevel air fluid levels persist. A right lower quadrant ostomy is again noted. No new mass or organomegaly. No new suspicious calcification nor free intraperitoneal air. IMPRESSION: ABNORMAL SMALL BOWEL GAS PATTERN REDEMONSTRATED CONSISTENT WITH MID TO DISTAL OBSTRUCTION WITH THE DEGREE OF DILATATION APPEARING SLIGHTLY MORE PRONOUNCED IN THE INTERVAL. NO FREE INTRAPERITONEAL AIR. JOB NUMBER: [id number] [facility]
[2016-07-17] MEDS: 0.9 % SODIUM CHLORIDE 1000ML 1,000 ML IV PRN (09:06)
[2016-07-17] MEDS: DICYCLOMINE HCL 10 MG CAPSULE PO SCH (09:08)
[2016-07-17] MEDS: BACLOFEN 10 MG TABLET PO SCH ×2 (09:12→18:00)
[2016-07-17] MEDS: METOPROLOL TART 25 MG TABLET PO SCH (09:13)
[2016-07-17] MEDS: AMLODIPINE BESYLATE 5MG TAB PO SCH (09:13)
[2016-07-17] MEDS: ALPRAZOLAM 0.25 MG TABLET PO SCH (09:15)
--- NOTE | 2016-07-17 14:54 | Physician Progress Note ---
Subjective - Date Date of Physician Progress Note: 07/17/16 - Subjective Subjective Comment: Continues with ice chips only as PO intake. Trial of clear liquids 2 days ago unsuccessful, patient was nauseated after trial. Dr Lewis rounded of patient yesterday and recommended repeat abdominal x-ray. Denies nausea or abdominal pain. No flatus. Continues to have frequent stool output through ileostomy bag. Objective - Vital Signs Vital Signs: Vital Signs - Last 24 Hrs Temp Pulse Resp BP Pulse Ox 07/17/16 10:00 97.6 F 72 16 130/71 96 07/17/16 06:00 97.6 F 64 18 123/73 95 07/17/16 00:00 97.8 F 70 18 107/71 96 07/16/16 20:00 98.0 F 63 18 121/71 98 - General General Appearance: Alert, Oriented x3, Cooperative, No acute distress Limitations: No limitations - Head Head exam: Atraumatic, Normocephalic, Normal inspection - Eye Eye exam: Normal appearance, PERRL - Neck Neck exam: Normal inspection, Full ROM. negative: Tenderness - Respiratory Respiratory exam: Normal lung sounds bilaterally, Other (fine crackels right base). negative: Respiratory distress - Cardiovascular Cardiovascular Exam: Regular rate, Normal rhythm, Normal heart sounds - GI/Abdominal GI/Abdominal exam: Soft, Normal bowel sounds, Hypoactive bowel sounds (RUQ), Tenderness (There is mild R sided and left lower quadrant abdominal tenderness. no rebound or guarding on exam.). negative: Distended, Guarding - Extremities Extremities exam: Normal inspection, Full ROM, Normal capillary refill. negative: Tenderness - Neurological Neurological exam: Alert, Oriented X3 - Psychiatric Psychiatric exam: Normal affect, Normal mood - Skin Skin exam: Other (multiple abdominal scars) Assessment and Plan - Assessment and Plan (1) Small bowel obstruction due to adhesions Current Visit: Yes Status: Acute Base Code: K56.5 - INTESTINAL ADHESIONS W OBST (POSTPROCEDURAL) (POSTINFECTION) Comment: 07/17/16: 71 yo male w/ h/o UC, prostate ca s/p colectomy w/ ileostomy placement. CT A/P: adhesion w/ SBO. WBC normal. Afebrile. Ileostomy bag w/ liquid stool. - only tolerateing ice chips, unsuccessful trial of clear liquids - dilaudid 0.5 mg Q4 hours as needed for pain - repeat abdominal x-ray showing persistent SBO with increase bowel dilation - continues to have loose stool output via ileostomy bag - discussed case and recent abdominal x-ray with Dr Lewis, recommend he be transfered for surgical consult - [facility] contacted, Dr Gamble accepting admission to Med-Surg unit for SBO and sugical consult (2) Acute kidney injury Current Visit: Yes Status: Acute Base Code: N17.9 - ACUTE KIDNEY FAILURE, UNSPECIFIED Comment: 07/17/16: dehydration vs. infection vs. other? GFR 42. BUN/Cr continue to improve. - Cr. 1.8 today - continue gentle hydration - will continue to monitor kidney function closely (3) DVT prophylaxis Current Visit: Yes Status: Acute Base Code: [id number] - Comment: 07/17/16: low risk noting decreased mobility. ambulation encouraged. (4) Full code status Current Visit: Yes Status: Acute Base Code: Z78.9 - OTHER SPECIFIED HEALTH STATUS Comment: 07/17/16 pt is full code Results - Labs Result Diagrams: 07/17/16 05:55 07/17/16 05:55 Labs Last 24 Hours: Laboratory Results - last 24 hr 07/17/16 07/17/16 05:55 05:55 WBC 9.6 RBC 4.32 L Hgb 12.7 L Hct 38.5 L MCV 89.1 MCH 29.3 MCHC 33.0 RDW 13.3 Plt Count 168 MPV 11.3 H Gran % 61.2 Lymphocytes % 22.3 Monocytes % 14.3 H Eosinophils % 1.8 Basophils % 0.4 Sodium 144 Potassium 3.7 Chloride 108 H Carbon Dioxide 20.7 L Anion Gap 15.3 BUN 35 H Creatinine 1.8 H Estimated GFR 40 Random Glucose 81 Calcium 9.1 DVT/PE Assessment - Risk for VTE Risk for VTE: No Risk Level: Low Risk Assessment Date: 07/14/16 Risk Assessment Time: 12:00 VTE Orders Placed or Will Be Placed: Yes - Active Medicaitons Current Medications: Current Medications Alprazolam (Xanax) 0.5 mg PO DAILY [facility] Last Admin: 07/17/16 09:15 Dose: Not Given Amlodipine Besylate (Norvasc) 5 mg PO DAILY [facility] Last Admin: 07/17/16 09:13 Dose: 5 mg Baclofen (Lioresal) 10 mg PO TID [facility] Last Admin: 07/17/16 09:12 Dose: 10 mg Dicyclomine HCl (Bentyl) 10 mg PO BID [facility] Last Admin: 07/17/16 09:08 Dose: 10 mg Hydromorphone HCl (Dilaudid) 0.5 mg IVP Q4H PRN PRN Reason: Pain - Moderate (5-7) Last Admin: 07/15/16 21:01 Dose: 0.5 mg Sodium Chloride () 1,000 mls @ 125 mls/hr IV .Q8H PRN PRN Reason: LARGE VOLUME IV Last Admin: 07/17/16 09:06 Dose: 125 mls/hr Levothyroxine Sodium (Synthroid) 75 mcg PO DAILYTHY [facility] Last Admin: 07/17/16 06:33 Dose: 75 mcg Metoprolol Tartrate (Lopressor) 25 mg PO DAILY [facility] Last Admin: 07/17/16 09:13 Dose: 25 mg Ondansetron HCl (Zofran) 4 mg IVP Q4H PRN PRN Reason: NAUSEA Last Admin: 07/13/16 22:01 Dose: 4 mg Pantoprazole Sodium (Protonix Iv) 40 mg IVP Q24H [facility] Last Admin: 07/16/16 21:37 Dose: 40 mg Patient Own Med: (Quetiapine 400 Mg) 1 each PO QHS [facility] Last Admin: 07/16/16 21:37 Dose: 1 each Patient Own Med: (Divalproex Er 500 Mg) 2 each PO QHS [facility] Last Admin: 07/16/16 21:37 Dose: 2 each AMI Plan - Labs Result Diagrams: 07/17/16 05:55 07/17/16 05:55
--- NOTE | 2016-07-17 16:38 | Discharge Summary ---
Providers Discharge Summary Date: 07/17/16 Date of admission: 07/13/16 19:13 Expected Date of Discharge: 07/17/16 Attending physician: MARTHA KINNEY Physical Exam - Vital Signs Vital Signs: Vital Signs - Last 24 Hrs Temp Pulse Resp BP Pulse Ox 07/17/16 10:00 97.6 F 72 16 130/71 96 07/17/16 06:00 97.6 F 64 18 123/73 95 07/17/16 00:00 97.8 F 70 18 107/71 96 07/16/16 20:00 98.0 F 63 18 121/71 98 - General General Appearance: Alert, Oriented x3, Cooperative, No acute distress Limitations: No limitations - Head Head exam: Atraumatic, Normocephalic, Normal inspection - Eye Eye exam: Normal appearance, PERRL - Neck Neck exam: Normal inspection, Full ROM. negative: Tenderness - Respiratory Respiratory exam: Normal lung sounds bilaterally, Other (fine crackels right base). negative: Respiratory distress - Cardiovascular Cardiovascular Exam: Regular rate, Normal rhythm, Normal heart sounds - GI/Abdominal GI/Abdominal exam: Soft, Normal bowel sounds, Hypoactive bowel sounds (RUQ), Tenderness (There is mild R sided and left lower quadrant abdominal tenderness. no rebound or guarding on exam.). negative: Distended, Guarding - Extremities Extremities exam: Normal inspection, Full ROM, Normal capillary refill. negative: Tenderness - Neurological Neurological exam: Alert, Oriented X3 - Psychiatric Psychiatric exam: Normal affect, Normal mood - Skin Skin exam: Other (multiple abdominal scars) Hospitalization - Hospitalization Admission Diagnosis: 1. Small bowel obstruction with dehydration and renal insuffiency. - Problem List/Discharge Diagnosis (1) Small bowel obstruction due to adhesions Current Visit: Yes Status: Acute Base Code: K56.5 - INTESTINAL ADHESIONS W OBST (POSTPROCEDURAL) (POSTINFECTION) Comment: 07/17/16: 71 yo male w/ h/o UC, prostate ca s/p colectomy w/ ileostomy placement. CT A/P: adhesion w/ SBO. WBC normal. Afebrile. Ileostomy bag w/ liquid stool. - only tolerateing ice chips, unsuccessful trial of clear liquids - dilaudid 0.5 mg Q4 hours as needed for pain - repeat abdominal x-ray showing persistent SBO with increase bowel dilation - continues to have loose stool output via ileostomy bag - discussed case and recent abdominal x-ray with Dr Lewis, recommend he be transfered for surgical consult - [facility] contacted, Dr Gamble accepting admission to Med-Surg unit for SBO and sugical consult (2) Acute kidney injury Current Visit: Yes Status: Acute Base Code: N17.9 - ACUTE KIDNEY FAILURE, UNSPECIFIED Comment: 07/17/16: dehydration vs. infection vs. other? GFR 42. BUN/Cr continue to improve. - Cr. 1.8 today - continue gentle hydration - will continue to monitor kidney function closely (3) DVT prophylaxis Current Visit: Yes Status: Acute Base Code: [id number] - Comment: 07/17/16: low risk noting decreased mobility. ambulation encouraged. (4) Full code status Current Visit: Yes Status: Acute Base Code: Z78.9 - OTHER SPECIFIED HEALTH STATUS Comment: 07/17/16 pt is full code - Hospitalization Course Disposition: Acute Care Hospital Transfer Hospital Course: 65 yo male admitted SBO. History obtained from chart as patient is unable to stay awake during exam. PMHx of UC s/p colectomy w/ ileostomy placement, h/o SBO, anxiety, depression, HTN, hypothyroidism, acid reflux, former smoker, COPD , h/o etoh abuse, and Vit D defeciency. Pt presented to our ED for vague AP, nausea, and loose stool. symptoms began 4- 5 days prior to arrival. aggravated by nothing. Alleviated w/ bowel rest and pain medications. Associated symptoms include fever. upon presentation to the ED, temp 97.7, HR 83, RR 18, BP 136/96, pulse ox 99. WBC 8.5, hgb 14.2, hct 42.2, plt 219, BUN 42, cr 2.4, glucose 111, lipase & hepatic profile are negative. UA: trace ketones, moderate bili, stool negative for WBCs and Cdiff. CTA/P: colectomy, R ileostomy, small bowel obstruction w/ noted adhesion. Patient made NPO, started on IV pain control & fluids. General surgery consulted. Patient admitted for further medical management. 07/14/16: This am, patient is difficult to arouse following 1 gm of IV Dilaudid and 0.5 mg of PO Xanax. Patient arouses to name, however unable to stay awake. No family in the room and difficult to obtain history. Patient denies pain, however abdomen TTP on exam. Ileostomy bag w/ liquid stool. Per chart, no recent infections or antibiotic use. Other surgeries include prostatectomy and cholecystectomy. PCP: unknown Procedures: Imaging and X-Rays 07/15/16 08:00 ABDOMEN 2 VIEW [RAD] Stat 07/16/16 14:10 ABDOMEN 2 VIEW [RAD] Stat Abnormal Labs: Abnormal Lab Results 07/14/16 07/14/16 07/15/16 Range/Units 05:40 05:40 07:18 RBC 4.11 L 4.31 L (4.40-5.70) M/uL Hgb 12.3 L 12.8 L (14.0-18.0) gm/dl Hct 37.1 L 39.0 L (42.0-52.0) % MPV 11.4 H 11.1 H (7.4-10.4) fl Band Neutrophils % (0-5) % Monocytes % 14.1 H 13.4 H (0-9) % Chloride 110 H (98-107) mmol/L Carbon Dioxide 18.2 L (22-30) mmol/L BUN 47 H (9-20) mg/dL Creatinine 2.2 H (0.66-1.25) mg/dL Random Glucose 111 H (70-110) mg/dL Calcium 8.3 L (8.5-10.1) mg/dL 07/15/16 07/16/16 07/16/16 Range/Units 07:18 06:30 06:30 RBC 4.04 L (4.40-5.70) M/uL Hgb 12.0 L (14.0-18.0) gm/dl Hct 36.0 L (42.0-52.0) % MPV 11.2 H (7.4-10.4) fl Band Neutrophils % 16.0 H (0-5) % Monocytes % 10.0 H (0-9) % Chloride 111 H 108 H (98-107) mmol/L Carbon Dioxide 18.2 L 20.9 L (22-30) mmol/L BUN 42 H 31 H (9-20) mg/dL Creatinine 1.9 H 1.7 H (0.66-1.25) mg/dL Random Glucose (70-110) mg/dL Calcium (8.5-10.1) mg/dL 07/17/16 07/17/16 Range/Units 05:55 05:55 RBC 4.32 L (4.40-5.70) M/uL Hgb 12.7 L (14.0-18.0) gm/dl Hct 38.5 L (42.0-52.0) % MPV 11.3 H (7.4-10.4) fl Band Neutrophils % (0-5) % Monocytes % 14.3 H (0-9) % Chloride 108 H (98-107) mmol/L Carbon Dioxide 20.7 L (22-30) mmol/L BUN 35 H (9-20) mg/dL Creatinine 1.8 H (0.66-1.25) mg/dL Random Glucose (70-110) mg/dL Calcium (8.5-10.1) mg/dL Condition at Discharge: (2) Stable Discharge Medications - Discharge Medications Home Medications: Ambulatory Orders Alprazolam [Xanax] 0.5 mg PO DAILY 07/13/16 [Last Taken 07/12/16] Amlodipine Besylate [Norvasc] 5 mg PO DAILY 07/13/16 [Last Taken 07/12/16] Aspirin [Aspir-Low] 81 mg PO DAILY 07/13/16 [Last Taken 07/12/16] Baclofen 10 mg PO TID 07/13/16 [Last Taken 07/12/16] Cholecalciferol (Vitamin D3) [Vitamin D3] 1,000 unit PO DAILY 07/13/16 [Last Taken 07/12/16] Codeine Sulfate 30 mg PO TID 07/13/16 [Last Taken 07/12/16] Dicyclomine HCl 10 mg PO BID 07/13/16 [Last Taken 07/12/16] Divalproex Sodium [Depakote ER] 1,000 mg PO QHS 07/13/16 [Last Taken 07/11/16] Latanoprost 0.005% Opth Molly [Xalatan] 1 drop OP QHS 07/13/16 [Last Taken 22:00 1 drop each eye] Levothyroxine Sodium [Synthroid] 75 mcg PO DAILY 07/13/16 [Last Taken 07/12/16] Loperamide HCl [Immodium] 2 mg PO DAILY 07/13/16 [Last Taken 07/12/16] Metoprolol Tartrate [Lopressor] 25 mg PO DAILY 07/13/16 [Last Taken 07/12/16] Omeprazole [Prilosec] 20 mg PO DAILY 07/13/16 [Last Taken 07/12/16] Quetiapine Fumarate [Seroquel] 400 mg PO QHS 07/13/16 [Last Taken 07/12/16] Riboflavin [Vitamin B-2] 100 mg PO DAILY 07/13/16 [Last Taken 07/12/16] Sodium Fluoride [Fluoride] 0.5 mg PO DAILY 07/13/16 [Last Taken 07/12/16] Discharge Plan - Discharge Instructions Activity at Discharge: Increase Activity as Tolerated Diet at Discharge: Other (NPO except ice chips) Instructions: Abdominal Pain (ED)
[2016-07-17] MEDS: HYDROMORPHONE HCL 1 MG/ML CPJ IVP PRN (18:27)
== END 2016-07-17 18:50 | disposition short-term general hospital (02) | DRG 389 ==
LOC: ER 14:32 → MEDSURG 19:13
PROVIDERS: ADMIT Family Medicine; ATTEND Family Medicine
DX: K56.5 Intestinal adhesions [bands] with obstruction (postinfection) (principal); N17.9 Acute kidney failure, unspecified; E86.0 Dehydration; E03.9 Hypothyroidism, unspecified; Z93.3 Colostomy status; Z93.2 Ileostomy status
CPT/HCPCS: 99285 ×2; 96376; 96374; 96375; 83690; 85025; 80076; 80048; 89055; 81003; 87427; 87493; 74176; J2405 ×2; J1170; 74020; 85027; 99223; 99233; 99239; C9113; J7030